=== PATIENT | female | born 1955 | race Caucasian/White ===

== ENCOUNTER 2022-03-14 16:46 | Outpatient (REF) | payer MEDICARE, SELFPAY ==
[2022-03-14 20:24] LABS: Abs Immature Grans 0.01 10^3/uL (0.0-0.06); Absolute Basophil Count 0.03 10^3/uL (0.0-0.2); Absolute Eosinophil Count 0.12 10^3/uL (0.0-0.7); Absolute Lymphocyte Count 1.82 10^3/uL (1.2-3.4); Absolute Neutrophil Count 2.99 10^3/uL (1.2-6.7); Basophils % 0.5; Eosinophils % 2.1; HCT 38.4 % (36.0-46.0); HGB 12.2 g/dL (11.2-15.7); Immature Grans % 0.2; Lymphocytes % 31.5; MCH 28.3 pg (27.0-33.0); MCHC 31.8 % (32.0-36.0); MCV 89 fL (80-95); MPV 10.1 fL (8.0-11.0); Monocytes % 13.9; Neutrophils % 51.8; Platelet Count 353 10^3/uL (130-400); RBC 4.31 10^6/uL (3.93-5.22); RDW 12.2 % (11.7-14.6); RDW-SD 40.2 fL; WBC 5.77 10^3/uL (4.4-10.8)
[2022-03-14 20:47] LABS: ALT 34 U/L (14-59); AST 14 U/L (15-37); Albumin 3.2 g/dL (3.4-5.0); Alkaline Phosphatase 99 U/L (46-116); Anion Gap 10.2 mmol/L (3-11); BUN 18 mg/dL (7-18); Bilirubin, Total 0.3 mg/dL (0.2-1.0); CO2 25.8 mmol/L (21.0-32.0); CREATININE 0.6 mg/dL (0.55-1.02); Calcium 9.2 mg/dL (8.5-10.1); Chloride 107 mmol/L (98-107); Glucose 91 mg/dL (74-106); Potassium 4.5 mmol/L (3.5-5.1); Sodium 143 mmol/L (136-145); Total Protein 6.7 g/dL (6.4-8.2)
== END 2022-03-14 16:47 | disposition home or self-care (01) ==
LOC: LBN 16:46
PROVIDERS: Visit Provider Physician Assistant
DX: M79.89 Other specified soft tissue disorders (principal)
CPT/HCPCS: 80053; 85025

== ENCOUNTER → 2022-03-18 00:48 | Outpatient (CLI) | payer MEDICARE, SELFPAY ==
--- NOTE | 2022-03-18 07:30 | DI.US_ITS ---
Exam(s) US EXTREMITY VENOUS BI EXAM: US EXTREMITY VENOUS BI CLINICAL HISTORY: leg swelling, recent travel,? DVT,M79.89. TECHNIQUE: Bilateral lower extremity venous ultrasound performed using grayscale, color-flow, and sp ectral Doppler analysis. COMPARISON: No exams were available for comparison FINDINGS: The bilateral common femoral, femoral and popliteal veins demonstrate normal compressibility, augment ation, and color Doppler. The posterior tibial veins are patent. The saphenofemoral junctions are unr emarkable. There is a 4.3 x 0.9 x 2.8 cm Gaytan's cyst in the left popliteal fossa. The soft tissues are unremarkable. IMPRESSION: 1. Right: Negative for DVT 2. Left: Negative for DVT 3. 4.3 x 0.9 x 2.8 cm left Gaytan cyst. DATA REPOSITORY:
== END ==
PROVIDERS: Visit Provider Physician Assistant
DX: M79.89 Other specified soft tissue disorders (principal); M71.22 Synovial cyst of popliteal space [Baker], left knee
CPT/HCPCS: 93970

== ENCOUNTER 2022-04-19 11:07 | Observation (INO) | payer MEDICARE, SELFPAY ==
[2022-04-19 11:26] VITALS: BP 137/80; PULSE 112; RESP 18; TEMP 37.2; O2SAT 95
[2022-04-19 13:16] LABS: Abs Immature Grans 0.07 10^3/uL (0.0-0.06); Absolute Eosinophil Count 0.03 10^3/uL (0.0-0.7); Absolute Lymphocyte Count 1.82 10^3/uL (1.2-3.4); Absolute Monocyte Count 1.18 10^3/uL (0.1-0.8); Basophils % 0.3; Eosinophils % 0.2; HCT 36.2 % (36.0-46.0); HGB 11.6 g/dL (11.2-15.7); Immature Grans % 0.4; Lymphocytes % 11.7; MCH 27.8 pg (27.0-33.0); MCV 87 fL (80-95); MPV 9.7 fL (8.0-11.0); Monocytes % 7.6; Neutrophils % 79.8; Platelet Count 278 10^3/uL (130-400); RBC 4.17 10^6/uL (3.93-5.22); RDW 12.3 % (11.7-14.6); WBC 15.57 10^3/uL (4.4-10.8)
[2022-04-19 13:20] LABS: Absolute Basophil Count 0.05 10^3/uL (0.0-0.2); Absolute Neutrophil Count 12.42 10^3/uL (1.2-6.7)
--- NOTE | 2022-04-19 13:21 | ED.GENADUL_ITS ---
Discharge Plan Disposition Patient Disposition: [facility] INPATIENT Condition: Stable Discharge Details Clinical Impression: Acute diverticulitis Admit Date/Time: 04/19/22 16:33 Admit Provider: Janet Islas Attending Provider: Janet Islas Primary Care Provider: Unknown,Unknown ED Provider: Berta Centeno Discharge Data Discharge Date/Time-TO BE ENTERED AT DEPARTURE: 04/19/22 18:17 Medical Decision Making 56-year-old female with a history of hypertension and diverticulitis presents with left lower quadrant abdominal pain for the past 3 days. Heart rate 110s. Patient feels warm to palpation. Temp 99 on arrival. Will obtain an oral temperature. Her abdomen is soft but tender in the lower quadrants, most specifically left lower quadrant. Suspect diverticulitis. Also consider colitis, gastroenteritis, UTI, pyelonephritis. We will place an IV, bolus IV fluids, screening labs, urinalysis, CT abdomen and pelvis with oral contrast only. This patient was evaluated during a time of global shortage of iodinated contrast media. Based on guidance from the [employer], best practices, and local institutional approaches, an alternative path for evaluating and managing the patient may have been employed in order to provide optimal care during this shortage. The current situation has been discussed with the patient. Labs and imaging reviewed. White blood cell count 15, which may be in the setting of recent steroids. Remainder of labs unremarkable. Urinalysis negative. CT notes findings of sigmoid and descending diverticulitis but no abscess or free air. In the setting of reported temp of 101 with a leukocytosis, will plan for admission. Case discussed with Dr. Islas who excepts patient for admission. Dose of IV Zosyn ordered. Patient is agreeable with admission. Medical Records Medical records reviewed: Yes I reviewed the patient's medical records. Imaging Data Radiologic Study: Radiologist's impression: CT ABDOMEN ? PELVIS WO CLINICAL HISTORY: ? LLQ abd pain, r/o diverticulitis, colitis,pyelo.? TECHNIQUE:? Imaging Protocol: Axial computed tomography images with coronal and sagittal reformatted images were created and reviewed. COMPARISON:? No exams were available for comparison FINDINGS: ABDOMEN: Lung Bases: Normal where visualized. Liver: Normal density. No measurable mass. Gallbladder and biliary tract: Status post cholecystectomy.? No biliary ductal dilatation.? Pancreas: Normal density, no abnormal calcifications or inflammatory process. Spleen: Normal. Kidneys: Normal size, contour and axis.No radiodense stones or obstructive uropathy. No masses seen. Adrenal glands: No mass is seen. Lymph nodes: Within normal limits.? Abdominal Aorta: Abdominal portion non-dilated. Minimal atherosclerosis. PELVIS:? Bladder:Symmetric distention, no gross wall thickening. Bowel: There is diverticulosis of the descending and sigmoid colon.? There is bowel wall thickening and pericolonic inflammatory changes seen at the junction of the descending and sigmoid colon consistent with acute diverticulitis.? No evidence of appendicitis.? Peritoneal cavity: No ascites, collection or mesenteric inflammatory response.? No free air.? Reproductive organs: Unremarkable as visualized.? Bones: There is L5 spondylolysis and grade 1 spondylolisthesis of L5 on S1. Age- appropriate degenerative changes are seen in the spine.? There is a left convex curvature of the lumbar spine.? Soft Tissues: There are small fat containing bilateral inguinal hernia.? IMPRESSION: 1. Acute diverticulitis at the junction of the descending and sigmoid colon.? No abscess or free air. 2. Results of this exam have been verbally communicated with provider. Lab Data Lab results reviewed: Yes I reviewed the patient's lab results. Labs: Laboratory Tests Range/Units 04/19/22 04/19/22 04/19/22 13:00 13:00 15:15 WBC (4.4-10.8) 10^3/uL 15.57 H RBC (3.93-5.22) 10^6/uL 4.17 Hgb (11.2-15.7) g/dL 11.6 Hct (36.0-46.0) % 36.2 MCV (80-95) fL 87 MCH (27.0-33.0) pg 27.8 MCHC (32.0-36.0) % 32.0 RDW (11.7-14.6) % 12.3 Plt Count (130-400) 10^3/uL 278 MPV (8.0-11.0) fL 9.7 Immature Gran % 0.4 Neutrophils % 79.8 Lymphocytes % 11.7 Monocytes % 7.6 Eosinophils % 0.2 Basophils % 0.3 Nucleated RBC % (0.0-0.3) % 0.0 Absolute Neutrophils (1.2-6.7) 10^3/uL 12.42 H Absolute Lymphocytes (1.2-3.4) 10^3/uL 1.82 Absolute Monocytes (0.1-0.8) 10^3/uL 1.18 H Absolute Eosinophils (0.0-0.7) 10^3/uL 0.03 Absolute Basophils (0.0-0.2) 10^3/uL 0.05 Sodium (136-145) mmol/L 138 Potassium (3.5-5.1) mmol/L 3.7 Chloride (98-107) mmol/L 104 Carbon Dioxide (21.0-32.0) mmol/L 27.3 Anion Gap (3-11) mmol/L 6.7 BUN (7-18) mg/dL 18 Creatinine (0.55-1.02) mg/dL 0.6 Estimated GFR/1.73 m2 (mL/min/1.73m2) >= 60.00 Glucose (74-106) mg/dL 125 H Calcium (8.5-10.1) mg/dL 9.5 Total Bilirubin (0.2-1.0) mg/dL 0.6 AST (15-37) U/L 18 ALT (14-59) U/L 40 Alkaline Phosphatase (46-116) U/L 81 Total Protein (6.4-8.2) g/dL 6.8 Albumin (3.4-5.0) g/dL 2.9 L Lipase (73-393) U/L 72 Urine Color (Yellow) Yellow Urine Clarity (Clear) Clear Urine pH (5-8) 5.5 Ur Specific [place] (1.005-1.025) 1.025 Urine Protein (Negative) mg/dL Negative Urine Ketones (Negative) mg/dL Negative Urine Blood (Negative) Negative Urine Nitrite (Negative) Negative Urine Bilirubin (Negative) Negative Urine Urobilinogen (Up TO 0.2) EU/dL 0.2 Ur Leukocyte Esterase (Negative) Negative Urine Glucose (Negative) mg/dL Negative HPI General Mode of arrival: ambulatory . Date/Time Provider Initiated Documentation: 04/19/22 12:29 . Limitations to Documentation: no limitations . Information obtained by: patient . HPI Narrative: Patient is a 66-year-old female with a history of hypertension, diverticulitis who presents with left lower quadrant abdominal pain for the past 3 days. Patient states he recently finished a course of prednisone for joint pain and states her joint pain is since improved but now has lower abdominal pain. She states the pain is constant and achy, with worse with movement of her leg and when ambulating or bending over. She states the pain is currently 3/10. She has not taken any medication for pain. She admits to nausea but denies any vomiting, fever, diarrhea or urinary symptoms. Related Data Home Medications Medication Instructions Recorded Confirmed montelukast 10 mg tablet 10 mg PO DAILY 03/14/22 04/19/22 (Singulair) omeprazole 20 mg capsule,delayed 20 mg PO DAILY 04/19/22 04/19/22 release rosuvastatin 5 mg tablet 5 mg PO DAILY 04/19/22 04/19/22 amoxicillin 875 mg-potassium 1 tab PO BID diveriticulitis #14 04/20/22 clavulanate 125 mg tablet tabs metronidazole 500 mg tablet 500 mg PO Q12H diverticulitis #14 04/20/22 tabs Previous Rx's Medication Instructions Recorded amoxicillin 875 mg-potassium 1 tab PO BID diveriticulitis #14 04/20/22 clavulanate 125 mg tablet tabs metronidazole 500 mg tablet 500 mg PO Q12H diverticulitis #14 04/20/22 tabs Allergies Allergy/AdvReac Type Severity Reaction Status Date / Time No Known Allergies Allergy Verified 04/19/22 10:06 General Stated Complaint: Abd Prob CHASITY: 3 Review of Systems All systems reviewed & are unremarkable except as noted in HPI and below Constitutional Constitutional: Denies chills, Denies excessive sweating, Denies fatigue, Denies fever(s), Denies weakness and Denies weight loss Eyes Eyes: Reports system reviewed and no additional complaints, except as documented and Denies blurry vision ENT Ears, Nose, Mouth, and Throat: Denies vertigo, Denies dizziness, Denies otalgia, Denies nasal congestion, Denies sore throat and Denies throat swelling Cardiovascular Cardiovascular: Denies chest pain, Denies syncope, Denies rapid heart rate and Denies dyspnea Respiratory Respiratory: Denies chest congestion, Denies cough, Denies pain on inspiration and Denies dyspnea Gastrointestinal Gastrointestinal: Reports abdominal pain, Denies diarrhea, Reports nausea and Denies vomiting Genitourinary Genitourinary: Denies hematuria, Denies dysuria and Denies flank pain Musculoskeletal Musculoskeletal: Denies back pain and Denies joint swelling Integumentary/Breasts Skin/Breast: Denies lesions and Denies rash Neurologic Neurologic: Denies behavioral changes, Denies confusion, Denies vertigo, Denies dizziness, Denies syncope, Denies localized weakness and Denies weakness Psychiatric Psychiatric: Denies behavioral changes, Denies confusion and Denies depression Endocrine Endocrine: Denies excessive sweating and Denies fatigue Hematologic/Lymphatic Hematologic/Lymphatic: Denies easy bruising and Denies lymphadenopathy Allergic/Immunologic Allergic/Immunologic: Denies throat swelling PFSH All Active Problems Acute diverticulitis (Acute) Medical History Chronic joint pain History of diverticulitis HTN (hypertension) Surgical History History of tonsillectomy History of total right knee replacement Hx of cholecystectomy S/P colonoscopy Social History Smoking/Tobacco Use Status: Never Smoking risk assessment performed?: Yes Substance use type: does not use Do you feel safe at home: Yes Do you feel safe in your relationship?: Yes Exam Const General: cooperative Orientation: alert, awake and oriented x3 HENMT Head: normal to inspection Ears: hearing grossly normal bilaterally, external ears normal and TM's normal bilaterally General nose exam: external nose normal Face and sinus: normal facial exam Mouth: oral mucosae normal Teeth and gingiva: dentition normal Throat: posterior oropharynx normal Eyes General: appearance normal, both eyes and all related structures Eyelids: eyelids normal Pupils: PERRL EOM: EOM intact bilaterally Neck Neck: normal visual inspection Lymphatic: no lymphadenopathy noted Chest Chest: normal inspection of the chest Resp Effort & Inspection: normal respiratory effort and able to speak in complete sentences Auscultation: clear to auscultation bilaterally Cardio Rate: regular rate Rhythm: regular rhythm GI Inspection: normal to inspection Palpation: soft, not firm, no guarding, no hepatosplenomegaly, no masses and tender in the LLQ Auscultation: hypoactive bowel sounds Back/Spine/Pelvis Back: no CVA tenderness Skin General skin exam: no rashes or lesions noted Neuro General: patient alert and patient awake Cognition: normal cognition Speech: speech normal Gait: normal gait Motor: muscle tone normal throughout Sensory Exam: no sensory deficits noted Extrem General: normal to inspection, full ROM and capillary refill normal Psych Appearance: grossly normal Mental Status: mental status grossly normal Speech and Movement: speech and movement normal Affect: normal affect Thought Process: normal Course Vital Signs Vital signs: Vital Signs Temperature 99.0 F 04/19/22 11:26 Pulse 112 H 04/19/22 11:26 Respiratory Rate 18 04/19/22 11:26 Blood Pressure 137/80 04/19/22 11:26 Pulse Oximetry 95 04/19/22 11:26 Temperature 99.0 F 04/19/22 11:26 Temperature Source Temporal Artery Scan 04/19/22 11:26 Pulse 112 H 04/19/22 11:26 Respiratory Rate 18 04/19/22 11:26 Blood Pressure 137/80 04/19/22 11:26 Blood Pressure Position Sitting 04/19/22 11:26 Pulse Oximetry 95 04/19/22 11:26 Oxygen Delivery Method Room Air 04/19/22 11:26 Oxygen Flow Rate 0 04/19/22 11:26 Lab/Test Results Lab/Test Results: Laboratory Tests Range/Units 04/19/22 13:00 WBC (4.4-10.8) 10^3/uL 15.57 H RBC (3.93-5.22) 10^6/uL 4.17 Hgb (11.2-15.7) g/dL 11.6 Hct (36.0-46.0) % 36.2 MCV (80-95) fL 87 MCH (27.0-33.0) pg 27.8 MCHC (32.0-36.0) % 32.0 RDW (11.7-14.6) % 12.3 Plt Count (130-400) 10^3/uL 278 MPV (8.0-11.0) fL 9.7 Immature Gran % 0.4 Neutrophils % 79.8 Lymphocytes % 11.7 Monocytes % 7.6 Eosinophils % 0.2 Basophils % 0.3 Nucleated RBC % (0.0-0.3) % 0.0 Absolute Neutrophils (1.2-6.7) 10^3/uL 12.42 H Absolute Lymphocytes (1.2-3.4) 10^3/uL 1.82 Absolute Monocytes (0.1-0.8) 10^3/uL 1.18 H Absolute Eosinophils (0.0-0.7) 10^3/uL 0.03 Absolute Basophils (0.0-0.2) 10^3/uL 0.05
--- NOTE | 2022-04-19 13:30 | DI.CT_ITS ---
Exam(s) CT ABDOMEN PELVIS WO EXAM: CT ABDOMEN PELVIS WO CLINICAL HISTORY: LLQ abd pain, r/o diverticulitis, colitis,pyelo. TECHNIQUE: Imaging Protocol: Axial computed tomography images with coronal and sagittal reformatted images were created and reviewed. COMPARISON: No exams were available for comparison FINDINGS: ABDOMEN: Lung Bases: Normal where visualized. Liver: Normal density. No measurable mass. Gallbladder and biliary tract: Status post cholecystectomy. No biliary ductal dilatation. Pancreas: Normal density, no abnormal calcifications or inflammatory process. Spleen: Normal. Kidneys: Normal size, contour and axis.No radiodense stones or obstructive uropathy. No masses seen. Adrenal glands: No mass is seen. Lymph nodes: Within normal limits. Abdominal Aorta: Abdominal portion non-dilated. Minimal atherosclerosis. PELVIS: Bladder:Symmetric distention, no gross wall thickening. Bowel: There is diverticulosis of the descending and sigmoid colon. There is bowel wall thickening a nd pericolonic inflammatory changes seen at the junction of the descending and sigmoid colon consiste nt with acute diverticulitis. No evidence of appendicitis. Peritoneal cavity: No ascites, collection or mesenteric inflammatory response. No free air. Reproductive organs: Unremarkable as visualized. Bones: There is L5 spondylolysis and grade 1 spondylolisthesis of L5 on S1. Age-appropriate degenerat neha changes are seen in the spine. There is a left convex curvature of the lumbar spine. Soft Tissues: There are small fat containing bilateral inguinal hernia. IMPRESSION: 1. Acute diverticulitis at the junction of the descending and sigmoid colon. No abscess or free air. 2. Results of this exam have been verbally communicated with provider. RADIATION DOSE DELIVERED: 774.4mGy.cm Total DLP DATA REPOSITORY: All CT scans at this facility are submitted to the National Radiology Data Registry (NRDR) Dose Index Registry (DIR) with the [employer] (ACR). RADIATION OPTIMIZATION: All CT scans at this facility use at least one of these dose optimization te chniques: automated exposure control; mA and/or kV adjustment per patient size (includes targeted exa ms where dose is matched to clinical indication); or iterative reconstruction.
[2022-04-19 13:31] LABS: ALT 40 U/L (14-59); AST 18 U/L (15-37); Albumin 2.9 g/dL (3.4-5.0); Alkaline Phosphatase 81 U/L (46-116); Anion Gap 6.7 mmol/L (3-11); BUN 18 mg/dL (7-18); Bilirubin, Total 0.6 mg/dL (0.2-1.0); CO2 27.3 mmol/L (21.0-32.0); CREATININE 0.6 mg/dL (0.55-1.02); Calcium 9.5 mg/dL (8.5-10.1); Chloride 104 mmol/L (98-107); Glucose 125 mg/dL (74-106); Lipase 72 U/L (73-393); Potassium 3.7 mmol/L (3.5-5.1); Sodium 138 mmol/L (136-145); Total Protein 6.8 g/dL (6.4-8.2)
[2022-04-19] MEDS: Breeza Beverage 473 ML BTL PO ×2 (13:38→13:39)
[2022-04-19] MEDS: Ondansetron 4 MG/2 ML VIAL IVP (13:52)
[2022-04-19] MEDS: Normal Saline 1,000 ML 1000 ML IV (13:52)
[2022-04-19] MEDS: ACETAMINOPHEN 1,000 MG/100 ML BTL 400 MG IVPB (13:54)
[2022-04-19 15:04] VITALS: BP 133/68; PULSE 102; RESP 16; TEMP 37.2; O2SAT 98
[2022-04-19 15:36] LABS: Bilirubin Negative (Negative); Blood Negative (Negative); Clarity Clear (Clear); Glucose Negative (Negative); Ketones Negative (Negative); Leukocyte Esterase Negative (Negative); Nitrite Negative (Negative); Specific Gravity 1.025 (1.005-1.025); Urobilinogen 0.2 EU/dL (Up TO 0.2); pH 5.5 (5-8)
[2022-04-19 16:27] LABS: Source Nasal/Nares
--- NOTE | 2022-04-19 16:40 | W.PM.HP.N ---
Date of service: 04/19/22 Time of Service: 16:40 Assessment and Plan Assessment and plan (1) Acute diverticulitis: Status: Acute Assessment and plan: Mrs Pickard is a pleasant 66 year old female with acute diverticulitis. Recommend admission for at least 24 hours of IV antibiotics. If doing well tomorrow then may go home. Diet: Clear liquids Activity: up ad rafael Labs: repeat in am History of Present Illness Narrative: Mrs Pickard is a pleasant 66 year old female who was seen in the ER for LLQ pain and fevers as high as 101 at home. She has had some decreased appetite. She has had no change in bowel habits. Pain started about 48 hours ago. Patient was treated with prednisone for joint pain and finished the prednisone on 04/16. The next day she started to feel unwell. She does think she had a bout of diverticulitis before. She is otherwise very health. HAs some HTN that is well controlled Review of Systems Constitutional Constitutional: Reports as per HPI and Reports system reviewed and no additional complaints, except as documented Eyes Eyes: Reports system reviewed and no additional complaints, except as documented ENT Ears, Nose, Mouth, and Throat: Reports system reviewed and no additional complaints, except as documented Cardiovascular Cardiovascular: Denies chest pain, Denies irregular heart rhythm, Denies palpitations and Denies dyspnea Respiratory Respiratory: Denies cough and Denies dyspnea Gastrointestinal Gastrointestinal: Reports as per HPI Genitourinary Genitourinary: Reports system reviewed and no additional complaints, except as documented Musculoskeletal Musculoskeletal: Reports system reviewed and no additional complaints, except as documented Integumentary/Breasts Skin/Breast: Reports system reviewed and no additional complaints, except as documented Neurologic Neurologic: Reports system reviewed and no additional complaints, except as documented Endocrine Endocrine: Denies palpitations PFSH All Active Problems (Updated 04/19/22 @ 16:15 by Berta Centeno DO) Acute diverticulitis (Acute) Medical History (Updated 04/19/22 @ 16:15 by Berta Centeno DO) Chronic joint pain History of diverticulitis HTN (hypertension) Surgical History (Updated 04/19/22 @ 16:42 by Janet Islas MD) History of tonsillectomy History of total right knee replacement Hx of cholecystectomy S/P colonoscopy Social History Smoking/Tobacco Use Status: Never Smoking risk assessment performed?: Yes Substance use type: does not use Do you feel safe at home: Yes Do you feel safe in your relationship?: Yes Meds Allergies and Home Medications Allergies Allergy/AdvReac Type Severity Reaction Status Date / Time No Known Allergies Allergy Verified 04/19/22 10:06 Home Medications Medication Instructions Recorded Confirmed Type montelukast 10 mg tablet 10 mg PO DAILY 03/14/22 04/19/22 History (Alo) hydrochlorothiazide 12.5 mg tablet 12.5 mg PO DAILY #5 tabs 03/17/22 04/19/22 Rx Exam Const General: cooperative, comfortable and no acute distress Orientation: alert and oriented x3 HENMT Head: normocephalic and atraumatic Resp Effort & Inspection: normal respiratory effort Auscultation: clear to auscultation bilaterally Cardio Rate: regular rate Rhythm: regular rhythm Heart Sounds: no gallops, no murmurs and no rubs GI Inspection: normal to inspection Palpation: soft, no hepatosplenomegaly and tender in the LLQ Results Imaging Abdomen CT scan report/results: report reviewed and image reviewed Labs Result diagrams: 04/19/22 13:00 04/19/22 13:00 Labs: Laboratory Results - last 24 hr 04/19/22 04/19/22 04/19/22 05:41 13:00 13:00 WBC 15.57 H RBC 4.17 Hgb 11.6 Hct 36.2 MCV 87 MCH 27.8 MCHC 32.0 RDW 12.3 Plt Count 278 MPV 9.7 Immature Gran % 0.4 Neutrophils % 79.8 Lymphocytes % 11.7 Monocytes % 7.6 Eosinophils % 0.2 Basophils % 0.3 Nucleated RBC % 0.0 Absolute Neutrophils 12.42 H Absolute Lymphocytes 1.82 Absolute Monocytes 1.18 H Absolute Eosinophils 0.03 Absolute Basophils 0.05 Sodium 138 Potassium 3.7 Chloride 104 Carbon Dioxide 27.3 Anion Gap 6.7 BUN 18 Creatinine 0.6 Estimated GFR/1.73 m2 >= 60.00 Glucose 125 H Calcium 9.5 Total Bilirubin 0.6 AST 18 ALT 40 Alkaline Phosphatase 81 Total Protein 6.8 Albumin 2.9 L Lipase 72 Urine Color Urine Clarity Urine pH Ur Specific [place] Urine Protein Urine Ketones Urine Blood Urine Nitrite Urine Bilirubin Urine Urobilinogen Ur Leukocyte Esterase Urine Glucose COVID-19 Source Nasal/Nares 04/19/22 15:15 WBC RBC Hgb Hct MCV MCH MCHC RDW Plt Count MPV Immature Gran % Neutrophils % Lymphocytes % Monocytes % Eosinophils % Basophils % Nucleated RBC % Absolute Neutrophils Absolute Lymphocytes Absolute Monocytes Absolute Eosinophils Absolute Basophils Sodium Potassium Chloride Carbon Dioxide Anion Gap BUN Creatinine Estimated GFR/1.73 m2 Glucose Calcium Total Bilirubin AST ALT Alkaline Phosphatase Total Protein Albumin Lipase Urine Color Yellow Urine Clarity Clear Urine pH 5.5 Ur Specific [place] 1.025 Urine Protein Negative Urine Ketones Negative Urine Blood Negative Urine Nitrite Negative Urine Bilirubin Negative Urine Urobilinogen 0.2 Ur Leukocyte Esterase Negative Urine Glucose Negative COVID-19 Source Last Vital Signs Temp 99.0 F 04/19/22 15:04 Pulse 102 H 04/19/22 15:04 Resp 16 04/19/22 15:04 BP 133/68 04/19/22 15:04 Pulse Ox 98 04/19/22 15:04 PAWSS Have you Been Recently Intoxicated or Drunk Within the Last 30 days?: No Have you Ever Experienced Previous Episodes of Alcohol Withdrawal?: No Have you ever Experienced Withdrawal Seizures?: No Have you ever Experienced Delirium Tremens(DT)s?: No Have you ever undergone Alcohol Rehabilitation Treatment (i.e, inpt ot outpatient treatment programs)?: No Have you ever Experienced Blackouts?: No Have you ever Combined Alcohol with other Downers within the last 90 days?: No Have you ever Combined Alcohol with any other Substance of Abuse during the last 90 days?: No Positive Blood Alcohol level on Presentation? [PCS.BAL]: No Evidence of Increased Autonomic Activity (i.e. HR>120, tremor, sweating, agitation, nausea)?: No Result: 0
[2022-04-19] MEDS: PIPERACILLIN/TAZO 3.375 GM in Normal Saline 50 ML IVPB ×2 (16:43→22:06)
[2022-04-19 17:17] LABS: COVID-19 PCR Negative (Negative)
[2022-04-19 17:31] VITALS: BP 113/51; PULSE 91; TEMP 36.6; O2SAT 96
[2022-04-19 18:28] VITALS: BP 109/71; PULSE 89; RESP 18; TEMP 37.3; O2SAT 93
[2022-04-19 18:31] VITALS: BP 109/71; PULSE 89; RESP 18; TEMP 37.3; O2SAT 95
[2022-04-19] MEDS: Normal Saline Flush 10 ML SYR IVP ×2 (18:58→19:07)
[2022-04-19] MEDS: Lactated Ringers 1,000 ML 30 ML IV (18:58)
[2022-04-19] MEDS: Pantoprazole 40 MG VIAL IVP (19:07)
[2022-04-19 23:01] VITALS: BP 111/70; PULSE 97; RESP 18; TEMP 36.7; O2SAT 95
[2022-04-20] MEDS: PIPERACILLIN/TAZO 3.375 GM in Normal Saline 50 ML IVPB ×3 (04:00→15:26)
[2022-04-20] MEDS: Acetaminophen 325 MG TAB 650 MG PO ×2 (05:54→15:25)
[2022-04-20 06:20] LABS: ESR 32 mm/hr (0-30)
[2022-04-20 06:22] LABS: Abs Immature Grans 0.03 10^3/uL (0.0-0.06); Absolute Basophil Count 0.02 10^3/uL (0.0-0.2); Absolute Eosinophil Count 0.13 10^3/uL (0.0-0.7); Absolute Lymphocyte Count 1.59 10^3/uL (1.2-3.4); Absolute Monocyte Count 0.91 10^3/uL (0.1-0.8); Basophils % 0.2; Eosinophils % 1.3; HCT 33.4 % (36.0-46.0); HGB 10.7 g/dL (11.2-15.7); Immature Grans % 0.3; Lymphocytes % 15.6; MCH 27.5 pg (27.0-33.0); MCV 86 fL (80-95); MPV 9.6 fL (8.0-11.0); Monocytes % 8.9; Neutrophils % 73.7; Platelet Count 236 10^3/uL (130-400); RBC 3.89 10^6/uL (3.93-5.22); RDW 12.3 % (11.7-14.6); RDW-SD 38.5 fL; WBC 10.18 10^3/uL (4.4-10.8)
[2022-04-20 06:38] LABS: Anion Gap 6.9 mmol/L (3-11); BUN 13 mg/dL (7-18); C-Reactive Protein 3.54 mg/dL (0.0-0.3); CO2 26.1 mmol/L (21.0-32.0); CREATININE 0.6 mg/dL (0.55-1.02); Calcium 9.5 mg/dL (8.5-10.1); Chloride 107 mmol/L (98-107); Glucose 85 mg/dL (74-106); Potassium 3.7 mmol/L (3.5-5.1); Sodium 140 mmol/L (136-145)
[2022-04-20 07:27] VITALS: BP 118/71; PULSE 83; RESP 18; TEMP 37.3; O2SAT 96
--- NOTE | 2022-04-20 08:44 | INITIAL_ITS ---
- If Service Date Differs Date of service: 04/20/22 Time of Service: 08:44 Care Management Initial Assess REASON FOR HOSPITALIZATION:: Acute Diverticulitis PAST MEDICAL HISTORY/PAST SURGICAL HISTORY:: All Active Problems (Updated 04/19/22 @ 16:15 by Berta Centeno DO). Acute diverticulitis (Acute). Medical History (Updated 04/19/22 @ 16:15 by Berta Centeno DO). Chronic joint pain. History of diverticulitis. HTN (hypertension). Surgical History (Updated 04/19/22 @ 16:42 by Janet Islas MD). History of tonsillectomy. History of total right knee replacement. Hx of cholecystectomy. S/P colonoscopy PREVIOUS FUNCTIONAL STATUS/SOCIAL/FAMILY SUPPORTS:: Marielle lives in [place], [place] with her partner Sameer. Marielle drives and is independent and active at baseline. 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 CURRENT FUNCTIONAL STATUS:: Marielle was sitting up in bed when CM met with her. She is alert, oriented and easy to engage in conversation. Marielle shares that she is feeling better and hopeful to discharge this afternoon. Marielle shares that she has a PCP at [facility], however is planning to switch doctor's soon and expresses difficulty with scheduling. CM provided patient with list of local PCP's. CM will continue to support Marielle and her discharge planning needs. ADVANCE DIRECTIVES:: None on File, CM provided patient with Adv. Directive Forms. Has patient been provided with info about the portal/API?: Yes Did the patient sign up for the portal?: Yes (Prior to admission.) CODE STATUS:: Full Code INSURANCE COVERAGE / FINANCIAL ISSUES:: [employer] CURRENT HOME/COMMUNITY SERVICES/EQUIPMENT:: None PRIMARY CARE PHYSICIAN:: Sania Barrera, [facility] PATIENT/FAMILY EDUCATION NEEDS:: Review discharge instructions, limitations, medications and plan to follow up with community providers. ask me three. TRANSPORTATION:: via private vehicle with family. PLAN:: Anticipate, Marielle will discharge home via private vehicle with family when medically ready per provider. Marielle will follow up with her community providers and discharge plan of care as prescribed.
--- NOTE | 2022-04-20 09:31 | W.PM.PROGNOT ---
Date of Service Date of service: 04/20/22 Time of Service: 09:31 Assessment and Plan Assessment and plan (1) Acute diverticulitis: Status: Acute Assessment and plan: Patient tolerated clear liquids, advance to low fiber diet Continue IV antibitoics Leukocystosis resolved Encouraged ambulation, sitting in the chair and activity within the room Pulmonary toilet D/C home later today Addendum by Alexander Blount: She says she felt much better today and been tolerating food without any difficulty. She did have a little bit of a fever, but her vital signs are otherwise totally normal. Her abdomen soft, nontender, nondistended. I think we can discharge her home with outpatient antibiotic course. We will see her in the office in a week or 2 Subjective Subjective Interval history since last seen: Patient reports that she is feeling much better this morning and is eager to return home. She states she has been feeling significantly better this morning. She had loose BMs with some mild discomfort. Denies any nausea or vomiting. Exam Const General: cooperative, healthy appearing and comfortable Orientation: alert and oriented x3 Resp Effort & Inspection: normal respiratory effort and no audible wheezes GI Inspection: normal to inspection Palpation: soft, no guarding and nontender Objective Last Vital Signs Temp 37.3 C 04/20/22 07:27 Pulse 83 04/20/22 07:27 Resp 18 04/20/22 07:27 BP 118/71 04/20/22 07:27 Pulse Ox 96 04/20/22 07:27 Laboratory Results - last 24 hr 04/19/22 04/19/22 04/19/22 05:41 13:00 13:00 WBC 15.57 H RBC 4.17 Hgb 11.6 Hct 36.2 MCV 87 MCH 27.8 MCHC 32.0 RDW 12.3 Plt Count 278 MPV 9.7 Immature Gran % 0.4 Neutrophils % 79.8 Lymphocytes % 11.7 Monocytes % 7.6 Eosinophils % 0.2 Basophils % 0.3 Nucleated RBC % 0.0 Absolute Neutrophils 12.42 H Absolute Lymphocytes 1.82 Absolute Monocytes 1.18 H Absolute Eosinophils 0.03 Absolute Basophils 0.05 ESR Sodium 138 Potassium 3.7 Chloride 104 Carbon Dioxide 27.3 Anion Gap 6.7 BUN 18 Creatinine 0.6 Estimated GFR/1.73 m2 >= 60.00 Glucose 125 H Calcium 9.5 Total Bilirubin 0.6 AST 18 ALT 40 Alkaline Phosphatase 81 C-Reactive Protein Total Protein 6.8 Albumin 2.9 L Lipase 72 Urine Color Urine Clarity Urine pH Ur Specific Marshall Urine Protein Urine Ketones Urine Blood Urine Nitrite Urine Bilirubin Urine Urobilinogen Ur Leukocyte Esterase Urine Glucose COVID-19 Source Nasal/Nares SARS-CoV-2 (PCR) Negative 04/19/22 04/20/22 04/20/22 15:15 05:55 05:55 WBC RBC Hgb Hct MCV MCH MCHC RDW Plt Count MPV Immature Gran % Neutrophils % Lymphocytes % Monocytes % Eosinophils % Basophils % Nucleated RBC % Absolute Neutrophils Absolute Lymphocytes Absolute Monocytes Absolute Eosinophils Absolute Basophils ESR 32 H Sodium 140 Potassium 3.7 Chloride 107 Carbon Dioxide 26.1 Anion Gap 6.9 BUN 13 Creatinine 0.6 Estimated GFR/1.73 m2 >= 60.00 Glucose 85 Calcium 9.5 Total Bilirubin AST ALT Alkaline Phosphatase C-Reactive Protein 3.54 H Total Protein Albumin Lipase Urine Color Yellow Urine Clarity Clear Urine pH 5.5 Ur Specific Marshall 1.025 Urine Protein Negative Urine Ketones Negative Urine Blood Negative Urine Nitrite Negative Urine Bilirubin Negative Urine Urobilinogen 0.2 Ur Leukocyte Esterase Negative Urine Glucose Negative COVID-19 Source SARS-CoV-2 (PCR) 04/20/22 05:55 WBC 10.18 RBC 3.89 L Hgb 10.7 L Hct 33.4 L MCV 86 MCH 27.5 MCHC 32.0 RDW 12.3 Plt Count 236 MPV 9.6 Immature Gran % 0.3 Neutrophils % 73.7 Lymphocytes % 15.6 Monocytes % 8.9 Eosinophils % 1.3 Basophils % 0.2 Nucleated RBC % 0.0 Absolute Neutrophils 7.50 H Absolute Lymphocytes 1.59 Absolute Monocytes 0.91 H Absolute Eosinophils 0.13 Absolute Basophils 0.02 ESR Sodium Potassium Chloride Carbon Dioxide Anion Gap BUN Creatinine Estimated GFR/1.73 m2 Glucose Calcium Total Bilirubin AST ALT Alkaline Phosphatase C-Reactive Protein Total Protein Albumin Lipase Urine Color Urine Clarity Urine pH Ur Specific Marshall Urine Protein Urine Ketones Urine Blood Urine Nitrite Urine Bilirubin Urine Urobilinogen Ur Leukocyte Esterase Urine Glucose COVID-19 Source SARS-CoV-2 (PCR) PAWSS Have you Been Recently Intoxicated or Drunk Within the Last 30 days?: No Have you Ever Experienced Previous Episodes of Alcohol Withdrawal?: No Have you ever Experienced Withdrawal Seizures?: No Have you ever Experienced Delirium Tremens(DT)s?: No Have you ever undergone Alcohol Rehabilitation Treatment (i.e, inpt ot outpatient treatment programs)?: No Have you ever Experienced Blackouts?: No Have you ever Combined Alcohol with other Downers within the last 90 days?: No Have you ever Combined Alcohol with any other Substance of Abuse during the last 90 days?: No Positive Blood Alcohol level on Presentation? [PCS.BAL]: No Evidence of Increased Autonomic Activity (i.e. HR>120, tremor, sweating, agitation, nausea)?: No Result: 0
[2022-04-20] MEDS: Normal Saline Flush 10 ML SYR IVP ×2 (10:02→15:26)
[2022-04-20 15:19] VITALS: BP 121/70; PULSE 91; RESP 18; TEMP 38.4; O2SAT 93
[2022-04-20 15:25] VITALS: TEMP 38.4
--- NOTE | 2022-04-20 16:57 | DSE_ITS ---
Date of service: 04/20/22 Time of Service: 16:57 DS: Diagnosis Discharge Diagnosis (1) Acute diverticulitis: Status: Acute Discharge Plan Disposition Patient Disposition: HOME Condition: Stable Discharge Details Reason For Visit: Acute Diverticulitis Admit Date/Time: 04/19/22 16:33 Admit Provider: Janet Islas Attending Provider: Janet Islas Primary Care Provider: Unknown,Unknown Hospital Course Hospital Course: Ms. Pickard is a 66-year-old woman who presented with a chief complaint of abdominal pain. She underwent a CAT scan of the abdomen pelvis demonstrated evidence of acute diverticulitis. She was started on Zosyn and had resolution of her symptoms. She was afebrile overnight, had no evidence of leukocytosis, a nd was tolerating a regular diet. We will discharge her home with a course of enteral antibiotics and follow-up in the office in the next 1 to 2 weeks. Home Meds and New Rx's Prescriptions: New amoxicillin-pot clavulanate 875-125 mg tablet 1 tab PO BID Qty: 14 0RF metronidazole 500 mg Tablet 500 mg PO Q12H Qty: 14 0RF No Action montelukast [Singulair] 10 mg tablet 10 mg PO DAILY omeprazole 20 mg Capsule,Delayed Release(Dr/Ec) 20 mg PO DAILY rosuvastatin 5 mg Tablet 5 mg PO DAILY Discharge Instructions Instructions: Diverticulitis (GEN) Stand Alone Forms: Nursing Discharge Form Referrals: Alexander Blount MD [ [facility] STAFF PHYSICIAN] - (Please call for an appointment [phone]) Activity:: Activity as Tolerated Equipment/Supplies:: No Equipment Needed Diet:: As Tolerated Discharge Orders Discharge Orders: Discharge Order (Routine); Ordered 04/20/22 Ordered By: Alexander Blount Discharge Data Discharge Date/Time-TO BE ENTERED AT DEPARTURE: 04/20/22 18:06 DS: Data Vitals/I&O Vitals and I&O: Vital Signs Temperature 101.1 F H 04/20/22 15:25 Temperature Source Tympanic 04/20/22 15:19 Pulse 91 H 04/20/22 15:19 Pulse Rhythm Regular 04/20/22 16:29 Respiratory Rate 18 04/20/22 15:19 Respiratory Effort Non-Labored 04/20/22 16:29 Respiratory Depth Normal 04/20/22 16:29 Respiratory Pattern Normal 04/20/22 16:29 Blood Pressure 121/70 04/20/22 15:19 Blood Pressure Position Sitting 04/19/22 11:26 Pulse Oximetry 93 04/20/22 15:19 Oxygen Delivery Method Room Air 04/20/22 15:19 Oxygen Flow Rate 0 04/20/22 15:19 Pain Level 3 04/20/22 15:25 Intake & Output 04/19/22 04/20/22 04/20/22 23:59 11:59 23:59 Intake Total 1200 / 1200 1288 / 1768 480 / 1768 Output Total 1050 / 1050 Balance 1200 / 1200 238 / 718 480 / 718 Weight 158 lb 4.67 oz Intake: IV 1200 / 1200 478 / 478 Oral 810 / 1290 480 / 1290 Output: Urine 1050 / 1050 Other: Urine Color Pale Urine Appearance Clear Clear Urine Odor None Comment pT goes to bathroom independently. Per patient report Stool Size Moderate Stool Characteristics Soft Liquid Voiding Methods Toilet Toilet Data Completed and Pending Labs on day of discharge: Labs from last 24 hours 04/20/22 04/20/22 04/20/22 05:55 05:55 05:55 WBC 10.18 RBC 3.89 L Hgb 10.7 L Hct 33.4 L MCV 86 MCH 27.5 MCHC 32.0 RDW 12.3 Plt Count 236 MPV 9.6 Immature Gran % 0.3 Neutrophils % 73.7 Lymphocytes % 15.6 Monocytes % 8.9 Eosinophils % 1.3 Basophils % 0.2 Nucleated RBC % 0.0 Absolute Neutrophils 7.50 H Absolute Lymphocytes 1.59 Absolute Monocytes 0.91 H Absolute Eosinophils 0.13 Absolute Basophils 0.02 ESR 32 H Sodium 140 Potassium 3.7 Chloride 107 Carbon Dioxide 26.1 Anion Gap 6.9 BUN 13 Creatinine 0.6 Estimated GFR/1.73 m2 >= 60.00 Glucose 85 Calcium 9.5 C-Reactive Protein 3.54 H SARS-CoV-2 (PCR) 04/19/22 05:41 WBC RBC Hgb Hct MCV MCH MCHC RDW Plt Count MPV Immature Gran % Neutrophils % Lymphocytes % Monocytes % Eosinophils % Basophils % Nucleated RBC % Absolute Neutrophils Absolute Lymphocytes Absolute Monocytes Absolute Eosinophils Absolute Basophils ESR Sodium Potassium Chloride Carbon Dioxide Anion Gap BUN Creatinine Estimated GFR/1.73 m2 Glucose Calcium C-Reactive Protein SARS-CoV-2 (PCR) Negative PFSH All Active Problems Acute diverticulitis (Acute) Medical History Chronic joint pain History of diverticulitis HTN (hypertension) Surgical History History of tonsillectomy History of total right knee replacement Hx of cholecystectomy S/P colonoscopy Social History Smoking/Tobacco Use Status: Never Smoking risk assessment performed?: Yes Substance use type: does not use Do you feel safe at home: Yes Do you feel safe in your relationship?: Yes
--- NOTE | 2022-04-20 17:22 | PDOC.CMDIS ---
- If Service Date Differs Date of service: 04/20/22 Time of Service: 17:22 LACE Index Scoring Tool - Questions: Length of Stay (in days): 1 Acuity (Admit via E.D.?): Yes E.D. Visits: 1 - Answers: Total Score: 5 Risk of Readmission: Low Risk Care Management Discharge Reason for Hospitalization: Acute Diverticulitis Discharge Plan: Marielle is discharged home with a course of PO ABX. She will follow-up with Surgical in 1-2 weeks and was asked to call the office tomorrow morning for an appointment. Marielle will follow up with her community providers and discharge plan of care as prescribed. No new home services are indicated at this time. Patient/Family Education Needs: Review discharge instructions, limitations, medications and plan to follow up with community providers. ask me three.
--- NOTE | 2022-04-20 18:01 | W.PM.DS.N ---
DS: Diagnosis Discharge Diagnosis (1) Acute diverticulitis: Status: Acute Discharge Plan Disposition Patient Disposition: HOME Condition: Stable Discharge Details Reason For Visit: Acute Diverticulitis Admit Date/Time: 04/19/22 16:33 Admit Provider: Janet Islas Attending Provider: Janet Islas Primary Care Provider: Unknown,Unknown Hospital Course Hospital Course: Ms. Pickard is a 66-year-old woman who presented with a chief complaint of abdominal pain. She underwent a CAT scan of the abdomen pelvis demonstrated evidence of acute diverticulitis. She was started on Zosyn and had resolution of her symptoms. She was afebrile overnight, had no evidence of leukocytosis, and was tolerating a regular diet. We will discharge her home with a course of enteral antibiotics and follow-up in the office in the next 1 to 2 weeks. Home Meds and New Rx's Prescriptions: New amoxicillin-pot clavulanate 875-125 mg tablet 1 tab PO BID Qty: 14 0RF metronidazole 500 mg Tablet 500 mg PO Q12H Qty: 14 0RF No Action montelukast [Singulair] 10 mg tablet 10 mg PO DAILY omeprazole 20 mg Capsule,Delayed Release(Dr/Ec) 20 mg PO DAILY rosuvastatin 5 mg Tablet 5 mg PO DAILY Discharge Instructions Instructions: Diverticulitis (GEN) Stand Alone Forms: Nursing Discharge Form Referrals: Alexander Blount MD [ [facility] STAFF PHYSICIAN] - (Please call for an appointment [phone]) Activity:: Activity as Tolerated Equipment/Supplies:: No Equipment Needed Diet:: As Tolerated Discharge Orders Discharge Orders: Discharge Order (Routine); Ordered 04/20/22 Ordered By: Alexander Blount DS: Summary Time Spent with Patient providing and/or coordinating discharge services: Greater than 30 minutes Specific discharge activities: Prescribed medications and reviewed plans Reviewed dietary options Status at Discharge Functional status at discharge: independent ambulation Overall status at discharge: patient is back to baseline Mental Status: mental status grossly normal Speech and Movement: speech and movement normal Mood: congruent mood Affect: normal affect Exam Const General: cooperative, healthy appearing and comfortable HENMT Head: normal to inspection Neck Neck: full ROM and no lymphadenopathy Resp Effort & Inspection: normal respiratory effort and no respiratory distress Auscultation: clear to auscultation bilaterally Cardio Jugular venous pressure: no JVD Heart Sounds: S1 normal GI Inspection: normal to inspection Palpation: soft and no guarding Other: She has mild tenderness mostly in the left mid epigastrium and left lower quadrant. She does not guard. Neuro General: patient alert, patient awake and patient oriented x3 Psych Mental Status: mental status grossly normal Speech and Movement: speech and movement normal Mood: congruent mood Affect: normal affect DS: Data Vitals/I&O Vitals and I&O: Vital Signs Temperature 101.1 F H 04/20/22 15:25 Temperature Source Tympanic 04/20/22 15:19 Pulse 91 H 04/20/22 15:19 Pulse Rhythm Regular 04/20/22 16:29 Respiratory Rate 18 04/20/22 15:19 Respiratory Effort Non-Labored 04/20/22 16:29 Respiratory Depth Normal 04/20/22 16:29 Respiratory Pattern Normal 04/20/22 16:29 Blood Pressure 121/70 04/20/22 15:19 Blood Pressure Position Sitting 04/19/22 11:26 Pulse Oximetry 93 04/20/22 15:19 Oxygen Delivery Method Room Air 04/20/22 15:19 Oxygen Flow Rate 0 04/20/22 15:19 Pain Level 3 04/20/22 15:25 Intake & Output 04/19/22 04/20/22 04/20/22 23:59 11:59 23:59 Intake Total 1200 / 1200 1288 / 1818 530 / 1818 Output Total 1050 / 1050 Balance 1200 / 1200 238 / 768 530 / 768 Weight 158 lb 4.67 oz Intake: IV 1200 / 1200 478 / 528 50 / 528 Oral 810 / 1290 480 / 1290 Output: Urine 1050 / 1050 Other: Urine Color Pale Urine Appearance Clear Clear Urine Odor None Comment pT goes to bathroom independently. Per patient report Stool Size Moderate Stool Characteristics Soft Liquid Voiding Methods Toilet Toilet Data Completed and Pending Labs on day of discharge: Labs from last 24 hours 04/20/22 04/20/22 04/20/22 05:55 05:55 05:55 WBC 10.18 RBC 3.89 L Hgb 10.7 L Hct 33.4 L MCV 86 MCH 27.5 MCHC 32.0 RDW 12.3 Plt Count 236 MPV 9.6 Immature Gran % 0.3 Neutrophils % 73.7 Lymphocytes % 15.6 Monocytes % 8.9 Eosinophils % 1.3 Basophils % 0.2 Nucleated RBC % 0.0 Absolute Neutrophils 7.50 H Absolute Lymphocytes 1.59 Absolute Monocytes 0.91 H Absolute Eosinophils 0.13 Absolute Basophils 0.02 ESR 32 H Sodium 140 Potassium 3.7 Chloride 107 Carbon Dioxide 26.1 Anion Gap 6.9 BUN 13 Creatinine 0.6 Estimated GFR/1.73 m2 >= 60.00 Glucose 85 Calcium 9.5 C-Reactive Protein 3.54 H PFSH All Active Problems Acute diverticulitis (Acute) Medical History Chronic joint pain History of diverticulitis HTN (hypertension) Surgical History History of tonsillectomy History of total right knee replacement Hx of cholecystectomy S/P colonoscopy Social History Smoking/Tobacco Use Status: Never Smoking risk assessment performed?: Yes Substance use type: does not use Do you feel safe at home: Yes Do you feel safe in your relationship?: Yes
== END 2022-04-20 18:06 | disposition home or self-care (01) ==
LOC: ER 17:39 → MS 04-20 10:38
PROVIDERS: Admitting Provider Surgery; Emergency Provider Physician Assistant; Visit Provider Surgery
DX: K57.32 Diverticulitis of large intestine without perforation or abscess without bleeding (principal); I10 Essential (primary) hypertension; Z96.651 Presence of right artificial knee joint; Z20.822 Contact with and (suspected) exposure to COVID-19
CPT/HCPCS: 36415; 80048; 80053; 83690; 85652; 87635; 96361; 96365; 96366; 96367; 96375; 99217; 99219; 99284; 99285; 74176; 81003; 85025; 86140; G0378; J0131; J2405; J2543; J3490

== ENCOUNTER → 2022-05-04 07:55 | Outpatient (BNVA) | payer MEDICARE, SELFPAY | PROVIDERS: Visit Provider Surgery | DX: K57.92 Diverticulitis of intestine, part unspecified, without perforation or abscess without bleeding (principal); Z80.0 Family history of malignant neoplasm of digestive organs | CPT/HCPCS: 99212; 99213 ==

== ENCOUNTER 2025-03-11 01:02 | Outpatient (CLI) | payer MEDICARE, SELFPAY ==
--- NOTE | 2025-03-11 07:45 | DI.MAMMO_ITS ---
Exam(s) MAMMO SCREENING EXAM: MAMMO SCREENING CLINICAL HISTORY: screening,z12.39. TECHNIQUE: Bilateral full field digital CC and MLO mammographic images were obtained with 3D tomosyn thesis and utilizing computer aided detection (CAD). COMPARISON: Prior outside mammograms were reviewed. FINDINGS: There has been no significant change in the appearance and distribution of the fibroglandular tissue. Benign-appearing nodule lateral aspect left breast is unchanged. Benign-appearing microcalcification s in both breasts are noted. There are no new spiculated masses nor new malignant appearing microcalcification groups. There is no significant architectural distortion nor skin thickening-retraction. IMPRESSION: Benign findings. No radiographic evidence of malignancy. BI-RADS Category 2 - Benign Findings Breast Density - Category B - There are scattered areas of fibroglandular density. Breast density Category C or D implies that the patient has dense breast tissue. Dense breast tissue can make it harder to find cancer on a mammogram. Dense breast tissue is also associated with an incr eased risk of breast cancer. This information about the result of the mammogram report was provided to the patient to raise their awareness. Use this report when you speak with the patient about their risks for breast cancer, which includes their family history. At that time, you may recommend additional screening tests (Ultrasoun d or MRI) as these tests may add significant information. A negative radiographic report should not delay biopsy if a dominant or clinically suspicious mass is present. Up to ten percent of cancers are not identified on mammography. A negative report may reinforce clinical impression. Adenosis and dense breasts may obscure an underlying neoplasm. False positive reports average 6 to 10%. Patient will receive a letter notifying them of these results.
--- NOTE | 2025-03-11 14:46 | DI.DEXA_ITS ---
Exam(s) XR DEXA BONE DENSITY W/WO MAHSA EXAM: XR DEXA BONE DENSITY W/WO MAHSA CLINICAL HISTORY: screening for osteoporosis in postmenopausal status,z78.0 TECHNIQUE: COMPARISON: No exams were available for comparison FINDINGS: Lateral Spine Image: Unremarkable. No compression deformities identified. Left hip: Total T-Score: -1.1 Total Z-Score: 0.3 T- and Z-scores: Findings are consistent with osteopenia. Lumbar Spine: Total T-Score: -3.2 Total Z-Score: -1.2 T- and Z-scores: Findings are consistent with osteoporosis. There is osteoporosis in the left forearm with a total T-score of -3.7 and a Z-score of -1.9. IMPRESSION: Osteoporosis is seen in the lumbar spine and left forearm.
== END 2025-03-11 01:22 ==
LOC: DI 01:02
PROVIDERS: PCP Nurse Practitioner Family; Visit Provider Nurse Practitioner Family
DX: Z78.0 Asymptomatic menopausal state (principal); Z12.31 Encounter for screening mammogram for malignant neoplasm of breast; Z13.820 Encounter for screening for osteoporosis; M81.0 Age-related osteoporosis without current pathological fracture
CPT/HCPCS: 77063; 77067; 77080

== ENCOUNTER 2025-03-13 03:21 | Outpatient (CLI) | payer MEDICARE, SELFPAY ==
[2025-03-13 09:44] LABS: HCT 40.6 % (36.0-46.0); HGB 13.1 g/dL (11.2-15.7); MCH 29.4 pg (27.0-33.0); MCHC 32.3 % (32.0-36.0); MCV 91 fL (80-95); Platelet Count 329 10^3/uL (130-400); RBC 4.45 10^6/uL (3.93-5.22); RDW-SD 43.4 fL; WBC 6.64 10^3/uL (4.4-10.8)
[2025-03-13 09:53] LABS: Hemoglobin A1C 5.7 % (<5.7)
[2025-03-13 10:26] LABS: ALT 17 U/L (14-59); AST 17 U/L (15-37); Albumin 3.5 g/dL (3.4-5.0); Alkaline Phosphatase 117 U/L (46-116); Anion Gap 3.3 mmol/L (3-11); BUN 14 mg/dL (7-18); Bilirubin, Total 0.4 mg/dL (0.2-1.0); CO2 29.7 mmol/L (21.0-32.0); Calcium 8.8 mg/dL (8.5-10.1); Calculated LDL 117 mg/dL (<100); Chloride 104 mmol/L (98-107); Cholesterol 202 mg/dL (<200); Estimated GFR 61.36 (mL/min/1.73m2); Glucose 81 mg/dL (74-106); HDL Cholesterol 75 mg/dL (>or=50); Potassium 4.1 mmol/L (3.5-5.1); Sodium 137 mmol/L (136-145); Total Protein 7.2 g/dL (6.4-8.2); Triglyceride 54 mg/dL (<150)
== END 2025-03-13 03:22 | disposition home or self-care (01) ==
LOC: LBO 03:22
PROVIDERS: PCP Nurse Practitioner Family; Visit Provider Nurse Practitioner Family
DX: E78.00 Pure hypercholesterolemia, unspecified (principal); Z00.00 Encounter for general adult medical examination without abnormal findings; E05.00 Thyrotoxicosis with diffuse goiter without thyrotoxic crisis or storm; R73.09 Other abnormal glucose
CPT/HCPCS: 36415; 80053; 80061; 85027; 83036

== ENCOUNTER 2025-03-13 17:18 | Outpatient (REF) | payer MEDICARE, SELFPAY ==
--- NOTE | 2025-03-13 16:20 | SKI_PTH ---
PATIENT: Marielle Pickard LOC: [facility] U#:[id number] AGE/SX: 69/F ROOM: RE03/13/[address]: Bettina Betancur NP : [id number] BED: DIS: 03/13/2025 SPEC #: [id number] RECD: 03/14/25 12:53 STATUS: JS RESofia #: [id number] ANURAG: 03/13/25 16:[address]: Bettina Betancur DEPT: Surgical Specimen RECD BY: Carina Lindo Tissues: 1 - SKIN BIOPSY(SHAVE/PUNCH) Procedures: SKIN LEVEL 4 Comments: [id number]
== END 2025-03-13 17:19 | disposition home or self-care (01) ==
LOC: LBN 17:18
PROVIDERS: PCP Nurse Practitioner Family; Visit Provider Nurse Practitioner Family
DX: D22.9 Melanocytic nevi, unspecified (principal)
CPT/HCPCS: 88305

== ENCOUNTER 2025-05-29 00:57 | Outpatient (CLI) | payer MEDICARE, SELFPAY ==
[2025-05-29 09:36] LABS: Anion Gap 8.9 mmol/L (3-11); BUN 16 mg/dL (7-18); CO2 28.1 mmol/L (21.0-32.0); Calcium 9.0 mg/dL (8.5-10.1); Chloride 100 mmol/L (98-107); Estimated GFR 80.21 (mL/min/1.73m2); Glucose 90 mg/dL (74-106); Potassium 4.3 mmol/L (3.5-5.1); Sodium 137 mmol/L (136-145); T4 7.8 ug/dL (4.7-13.3); TSH 2.86 uIU/mL (0.36-3.74)
[2025-05-29 18:06] LABS: T3, Total 149 ng/dL (97-169)
== END 2025-05-29 00:58 | disposition home or self-care (01) ==
LOC: LOS 00:57
PROVIDERS: PCP Nurse Practitioner Family; Visit Provider Student in an Organized Health Care Education/Training Program
DX: E05.00 Thyrotoxicosis with diffuse goiter without thyrotoxic crisis or storm (principal)
CPT/HCPCS: 36415; 80048; 84436; 84443; 84480

== ENCOUNTER 2025-08-05 01:20 | Outpatient (CLI) | payer MEDICARE, SELFPAY ==
[2025-08-05 11:25] LABS: TSH 0.42 uIU/mL (0.36-3.74)
[2025-08-05 17:18] LABS: T3, Total 118 ng/dL (82-158)
== END 2025-08-05 01:21 | disposition home or self-care (01) ==
LOC: LBO 01:20
PROVIDERS: PCP Nurse Practitioner Family; Visit Provider Student in an Organized Health Care Education/Training Program
DX: E05.00 Thyrotoxicosis with diffuse goiter without thyrotoxic crisis or storm (principal)
CPT/HCPCS: 36415; 84439; 84443; 84480